=== PATIENT | female | born 1950 | race Caucasian/White ===

== ENCOUNTER 2016-12-28 17:07 | Emergency (ER) | payer MEDICARE, OTHER ==
[2016-12-28] MEDS ORDERED: ONDANSETRON ODT 4 MG TAB.RAPDIS ONE (17:36)
[2016-12-28] MEDS ORDERED: ALPRAZolam 0.5 MG TABLET PO ONE (17:36)
--- NOTE | 2016-12-28 18:25 | ER PHYSICIAN DOCUMENTATION ---
Physician Documentation [facility] Name:Tyoa Zamorano Age:66 yrs Sex:Female :1950 Arrival Date:12/28/2016 Time:17:07 Bed1 Private MD: Alton Blake Disposition: 12/28/16 18:19 Discharged to Home/Self Care. Impression: Abdominal Pain, Generalized, Candidal Vulvovaginitis. - Condition is Good. - Discharge Instructions: VAGINITIS, Tracey, Abdomen - ABDOMINAL PAIN, Unknown Cause, (Female). - Medical Reconciliation form form. - Follow up: Private Physician; When: As needed; Reason: Worsening of condition. - Problem is new. - Symptoms have improved. HPI: 12/28 18:19 This 66 yrs old Female presents to ER via Private Vehicle with complaints of sc Abdominal Pain. 18:19 The patient presents with abdominal pain that is diffuse. Onset: The symptoms/episode sc began/occurred 30 minute(s) ago. The symptoms do not radiate. Associated signs and symptoms: none. Associated signs and symptoms: Pertinent positives: vaginal discharge. The symptoms are described as crampy. Severity of pain: At its worst the pain was severe in the emergency department the pain has resolved. Historical: - Allergies: C-KLOR; - Home Meds: 1. citalopram oral 2. losartan oral 3. Trazodone Oral 4. Hydrochlorothiazide Oral 5. Doxycycline Oral - PMHx: Hypertension; ANXIETY; CANCER, BREAST; - PSHx: Hysterectomy; - Tetanus: < 10 years. - Ebola Screening: : Patient negative for fever greater than or equal to 101.5 degrees Fahrenheit, and additional compatible Ebola Virus Disease symptoms. - Immunization history: Flu Vaccine None. - Social history: Smoking status: Patient states was never smoker of tobacco. ROS: 18:20 Constitutional: Negative for fever, chills, and weight loss. sc Eyes: Negative for injury, pain, redness, and discharge. ENT: Negative for injury, pain, and discharge. Neck: Negative for injury, pain, and swelling. Cardiovascular: Negative for chest pain, palpitations, and edema. Respiratory: Negative for shortness of breath, cough, wheezing, and pleuritic chest pain. Back: Negative for injury and pain. Skin: Negative for injury, rash, and discoloration. 18:20 Neuro: Negative for headache, weakness, numbness, tingling, and seizure. sc 18:20 ENT: Positive for ear pain, sinus congestion. 18:20 Abdomen/GI: Positive for abdominal pain, abdominal cramps. Exam: Constitutional: This is a well developed, well nourished patient who is awake, alert, and in no acute distress. Head/Face: Normocephalic, atraumatic. Eyes: Pupils equal round and reactive to light, extra-ocular motions intact. Lids and lashes normal. Conjunctiva and sclera are non-icteric and not injected. Cornea within normal limits. Periorbital areas with no swelling, redness, or edema. ENT: Nares patent. No nasal discharge, no septal abnormalities noted. Tympanic membranes are normal and external auditory canals are clear. Oropharynx with no redness, swelling, or masses, exudates, or evidence of obstruction, uvula midline. Mucous membranes moist. Neck: Trachea midline, no thyromegaly or masses palpated, and no cervical lymphadenopathy. Supple, full range of motion without nuchal rigidity, or vertebral point tenderness. No meningismus. Chest/axilla: Normal chest wall appearance and motion. Nontender with no deformity. No lesions are appreciated. Cardiovascular: Regular rate and rhythm with a normal S1 and S2. No gallops, murmurs, or rubs. Normal PMI, no JVD. No pulse deficits. Respiratory: Lungs have equal breath sounds bilaterally, clear to auscultation and percussion. No rales, rhonchi or wheezes noted. No increased work of breathing, no retractions or nasal flaring. Abdomen/GI: Soft, non-tender, with normal bowel sounds. No distension or tympany. No guarding or rebound. No evidence of tenderness throughout. Back: No spinal tenderness. No costovertebral tenderness. Full range of motion. 18:24 Skin: Warm, dry with normal turgor. Normal color with no rashes, no lesions, and no sc evidence of cellulitis. Vital Signs: 17:16 BP 171 / 111; Pulse 73; Resp 16; Temp 97.7(O); Pulse Ox 96% on R/A; Weight 54.43 kg arc (R); Height 5 ft. 2 in. (157.48 cm) (R); Pain 6/10; 18:24 BP 150 / 90; Pulse 70; Resp 16; Pulse Ox 95% on R/A; Pain 3/10; rh 17:16 Body Mass Index 21.95 (54.43 kg, 157.48 cm) arc MDM: 17:09 Patient medically screened. in 18:25 Differential diagnosis: bowel obstruction, gastroesophageal reflux disease, sc non-specific abd pain. Data reviewed: vital signs, nurses notes, and as a result, I will discharge patient. Counseling: I had a detailed discussion with the patient and/or guardian regarding: the historical points, exam findings, and any diagnostic results supporting the discharge/admit diagnosis, lab results, the need for outpatient follow up, to return to the emergency department if symptoms worsen or persist or if there are any questions or concerns that arise at home. 12/28 17:55 Order name: Urine Dip; Complete Time: 18:08 in Dispensed Medications: 17:24 Drug: Zofran 4 mg; Route: PO; rh 18:08 Follow up: Response: Nausea is decreased rh 17:32 Drug: Xanax Tablet 0.5 mg; Route: PO; rh 18:08 Follow up: Response: Anxiety decreased Point of Care Testing: Urine Dip: 18:02 pH: 5.5; ; Specific [place]: 1.020; Ketones: Negative; Glucose: Negative; Protein: arc Trace; Leukocytes: Positive; Nitrite: Negative ; Blood: Small (+); Bilirubin: Negative ; Urobilinogen: Normal Signatures: Alton Burroughs MD MD in Brenda Oro
--- NOTE | 2016-12-28 18:25 | ER NURSING DOCUMENTATION ---
Nurse's Notes [facility] Name:Toya Zamorano Age:66 yrs Sex:Female :1950 Arrival Date:12/28/2016 Time:17:07 Bed1 Private MD: Diagnosis:Abdominal Pain, Generalized;Candidal Vulvovaginitis Presentation: 12/28 17:10 Acuity: SHEILA 3 rh 17:26 Presenting complaint: Patient states: PT is here from [place] for a girls trip, rh arrived yesterday and today she has had some alcohol and has abdominal pain x1 hour with slight nausea. Transition of care: Home. 17:26 Method Of Arrival: Private Vehicle rh Triage Assessment: 17:30 General: Appears in no apparent distress, Behavior is cooperative. Pain: Complains of rh pain in abdomen. EENT: Oral mucosa is dry. Neuro: Level of Consciousness is awake, alert, obeys commands. Cardiovascular: Capillary refill < 3 seconds Chest pain is denied. Respiratory: Airway is patent Respiratory effort is even, unlabored, Denies shortness of breath. GI: Abdomen is non- distended Abd is soft and non tender Reports cramping, nausea. : Denies burning with urination. Derm: Skin is intact, is healthy with good turgor, Skin is. Historical: - Allergies: C-KLOR; - Home Meds: 1. citalopram oral 2. losartan oral 3. Trazodone Oral 4. Hydrochlorothiazide Oral 5. Doxycycline Oral - PMHx: Hypertension; ANXIETY; CANCER, BREAST; - PSHx: Hysterectomy; - Tetanus: < 10 years. - Ebola Screening: : Patient negative for fever greater than or equal to 101.5 degrees Fahrenheit, and additional compatible Ebola Virus Disease symptoms. - Immunization history: Flu Vaccine None. - Social history: Smoking status: Patient states was never smoker of tobacco. Screenin:31 Infectious Disease Risk None. Abuse screen: Denies threats or abuse. Denies injuries rh from another. Nutritional screening: No deficits noted. Assessment: 17:31 See Triage Assessment done by same RN. Vital Signs: 17:16 BP 171 / 111; Pulse 73; Resp 16; Temp 97.7(O); Pulse Ox 96% on R/A; Weight 54.43 kg arc (R); Height 5 ft. 2 in. (157.48 cm) (R); Pain 6/10; 18:24 BP 150 / 90; Pulse 70; Resp 16; Pulse Ox 95% on R/A; Pain 3/10; rh 17:16 Body Mass Index 21.95 (54.43 kg, 157.48 cm) arc ED Course: 17:09 Patient arrived in ED. jt 17:09 Alton Burroughs MD is Attending Physician. nc 17:10 Brenda Oro is Primary Nurse. rh 17:10 Triage completed. rh 17:20 Notified ED Physician of patient's arrival and chief complaint. Dr. Burroughs notified. rh 17:31 Valuables Remains with patient Patient has correct armband on for positive rh identification. Placed in gown. Bed in low position. Side rails up X 1. Family accompanied patient. Administered Medications: 17:24 Drug: Zofran 4 mg; Route: PO; rh 18:08 Follow up: Response: Nausea is decreased rh 17:32 Drug: Xanax Tablet 0.5 mg; Route: PO; rh 18:08 Follow up: Response: Anxiety decreased Point of Care Testing: Urine Dip: 18:02 pH: 5.5; ; Specific [place]: 1.020; Ketones: Negative; Glucose: Negative; Protein: arc Trace; Leukocytes: Positive; Nitrite: Negative ; Blood: Small (+); Bilirubin: Negative ; Urobilinogen: Normal Outcome: 18:19 Discharge ordered by . nc 18:24 Discharged to home ambulatory, with friend. rh 18:24 Condition: improved 18:24 Discharge Assessment: Patient awake, alert and oriented x 3. No cognitive and/or functional deficits noted. Patient verbalized understanding of disposition instructions. 18:24 Discharge instructions given to patient, friend, Instructed on discharge instructions, follow up and referral plans. Demonstrated understanding of instructions. 18:25 Patient left the ED. Signatures: Alton Burroughs MD MD nc Daysi Burroughs, [facility] Brenda Oro [employer]
== END 2016-12-28 18:25 | disposition home or self-care (01) ==
LOC: ER 17:07
DX: R10.84 Generalized abdominal pain (principal); B37.3 Candidiasis of vulva and vagina; I10 Essential (primary) hypertension; Z79.899 Other long term (current) drug therapy
CPT/HCPCS: 99282; 99283